=== PATIENT | male | born 1985 | race Caucasian/White ===

== ENCOUNTER 2018-06-24 20:09 | Emergency (ER) | payer OTHER ==
[2018-06-24 20:27] VITALS: BP 138/80; PULSE 73; RESP 18; TEMP 98.3
--- NOTE | 2018-06-24 20:47 | ED ---
General Adult HPI - General Chief complaint: Extremity Injury, Upper Stated complaint: swollen hand Time Seen by Provider: 06/24/18 20:27 Source: patient, RN notes reviewed Mode of arrival: ambulatory Limitations: no limitations - History of Present Illness Initial comments: 33-year-old male presents to the emergency determine for a chief complaint of right hand pain times one day. Patient states he noticed the back of his hand started to swell earlier today. Patient states that about one month ago he hit his hand on a bar when he was climbing a ladder and had pain but states the swelling subsided after about 2 days. He states there was no swelling over the past few weeks until today. Patient states he now has pain with movement of the wrist. Minimal pain with movement of the fingers. Patient denies fevers or chills. Patient denies any streaking redness. Patient has no other complaints at this time including shortness of breath, chest pain, abdominal pain, nausea or vomiting, headache, or visual changes. - Related Data Previous Rx's Medication Instructions Recorded Amoxicillin/Potassium Clav 1 tab PO Q12HR #20 tab 06/24/18 [Augmentin 875-125 Tablet] Allergies Allergy/AdvReac Type Severity Reaction Status Date / Time No Known Allergies Allergy Verified 06/24/18 20:27 Review of Systems ROS Statement: Those systems with pertinent positive or pertinent negative responses have been documented in the HPI. ROS Other: All systems not noted in ROS Statement are negative. Past Medical History Past Medical History: No Reported History History of Any Multi-Drug Resistant Organisms: None Reported Additional Past Surgical History / Comment(s): femur repair Past Psychological History: No Psychological Hx Reported Smoking Status: Current every day smoker Past Alcohol Use History: Daily Past Drug Use History: None Reported General Exam Limitations: no limitations General appearance: alert, in no apparent distress Head exam: Present: atraumatic, normocephalic, normal inspection Eye exam: Present: normal appearance, PERRL, EOMI. Absent: scleral icterus, conjunctival injection, periorbital swelling ENT exam: Present: normal exam, mucous membranes moist Neck exam: Present: normal inspection. Absent: tenderness, meningismus, lymphadenopathy Respiratory exam: Present: normal lung sounds bilaterally. Absent: respiratory distress, wheezes, rales, rhonchi, stridor Cardiovascular Exam: Present: regular rate, normal rhythm, normal heart sounds. Absent: systolic murmur, diastolic murmur, rubs, gallop, clicks Extremities exam: Present: tenderness (Mild Tenderness to the dorsal aspect of the right hand and wrist), normal capillary refill (Epler refill less than 2 seconds and radial pulse 2+), joint swelling (Patient does have edema noted over the second and third dorsal metacarpals of the right hand as well as mild erythema, no streaking redness up the hand.). Absent: full ROM (Patient has some limited range motion of the right wrist to about 30 flexion and extension. Full range motion of the fingers of the right hand) Course Vital Signs 06/24/18 20:23 Temperature 98.3 F Pulse Rate 73 Respiratory 18 Rate Blood Pressure 138/80 O2 Sat by Pulse 97 Oximetry Medical Decision Making - Medical Decision Making 33-year-old male presents to the emergency department for a chief complaint of right hand pain and swelling times one day. Patient states he noticed swelling to his hand this morning. Patient did injure his hand about a month ago that has subsided. Patient also states he has had Scratches on his hand. On exam patient has edema and minor erythema noted of the dorsal right hand second and third metacarpals. Full range of motion of the digits of the right hand with some limited range motion of the right wrist. There is a small superficial cat scratch on the dorsum of the right hand. The right wrist and hand showed soft tissue swelling without fracture or dislocation. 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 There is no streaking redness up the arm or spreading redness. Patient will be treated with Augmentin to cover any cellulitic infection from cat bite. He is educated to rest ice and elevate the right hand and given a follow-up to Dr. Willson. Dr salas also visualized the hand. He will monitor for any spreading redness or pain with movement of the fingers and return if these occur or if any other worsening symptoms occur, Disposition Clinical Impression: Hand pain Disposition: HOME SELF-CARE Condition: Good Instructions: Cellulitis (ED), Hand Sprain (ED) Additional Instructions: Please take antibiotic as directed. Please follow-up with orthopedics in one to 2 days. Return to the emergency department if you have any worsening symptoms Prescriptions: Amoxicillin/Potassium Clav [Augmentin 875-125 Tablet] 1 tab PO Q12HR #20 tab Is patient prescribed a controlled substance at d/c from ED?: No Referrals: Eduin Willson DO [Doctor of Osteopathic Medicine] - 1-2 days Time of Disposition: 22:02
--- NOTE | 2018-06-24 21:20 | XR ---
EXAMINATION TYPE: XR wrist complete RT DATE OF EXAM: 06/24/2018 COMPARISON: NONE HISTORY: Swelling and edema TECHNIQUE: 4 views FINDINGS: I see no fracture nor dislocation. There is soft tissue swelling on the dorsum of the hand. Carpal bones are intact. There is probably an old healed distal fifth metacarpal fracture. IMPRESSION: Soft tissue swelling. No fracture seen.
--- NOTE | 2018-06-24 21:21 | XR ---
EXAMINATION TYPE: XR hand complete RT DATE OF EXAM: 06/24/2018 COMPARISON: NONE HISTORY: Swelling and edema TECHNIQUE: 3 views FINDINGS: There is soft tissue swelling on the dorsum of the hand. Metacarpals are intact. I see no a cute fracture nor dislocation. There is thickening of the distal fifth metacarpal consistent with old healed fracture. IMPRESSION: Soft tissue swelling. No acute bony abnormality.
[2018-06-24] MEDS ORDERED: AMOXIC-POT CLAV 875MG STARTER 2 EACH TABLET PO STA (22:03)
== END 2018-06-24 22:10 | disposition home or self-care (01) ==
LOC: EC 20:09
DX: S60.511A Abrasion of right hand, initial encounter (principal); F17.200 Nicotine dependence, unspecified, uncomplicated; W55.01XA Bitten by cat, initial encounter
CPT/HCPCS: 99283